=== PATIENT | male | born 1985 | race African-American/Black ===

== ENCOUNTER 2019-02-07 11:57 | Emergency (ER) | payer OTHER ==
[~2019-02-07] VITALS: Ht 165.1 cm; Wt 54.4 kg
[2019-02-07 12:50] VITALS: BP 154/78; TEMP 98.1
== END 2019-02-07 12:50 | disposition home or self-care (01) ==
LOC: ED 11:57
DX: J02.9 Acute pharyngitis, unspecified (principal)
CPT/HCPCS: 87651; 99282; 99283